=== PATIENT | male | born 1970 | race Caucasian/White ===

== ENCOUNTER 2020-03-12 14:32 | Outpatient (CLI) | payer OTHER ==
[~2020-03-12] VITALS: Ht 175.3 cm; Wt 90.7 kg
[2020-03-12] MEDS ORDERED: albuterol 2.5 MG/3 ML nebule NEB ONE (15:10)
== END 2020-03-12 23:59 | disposition home or self-care (01) ==
LOC: RT 14:32
PROVIDERS: ATTEND Orthopaedic Surgery
DX: R94.2 Abnormal results of pulmonary function studies (principal); J45.909 Unspecified asthma, uncomplicated
CPT/HCPCS: 94060; 94760